=== PATIENT | male | born 1980 | race African-American/Black ===

== ENCOUNTER 2017-09-12 13:07 | Emergency (ER) | payer SELFPAY ==
[~2017-09-12] VITALS: Ht 182.9 cm; Wt 86.8 kg
[~2017-09-12 13:07] MED LIST: LEVE-5 PO; TOPI100T42 PO
[2017-09-12 13:28] VITALS: Ht 182.9 cm; Wt 86.8 kg
[2017-09-12] MEDS ORDERED: LEVE500S8 PO (15:49)
[2017-09-12] MEDS ORDERED: LEVE100018 PO (15:51)
[2017-09-12] MEDS ORDERED: LEVETIRACETAM 500 MG TAB PO ONE (16:00)
--- NOTE | 2017-09-12 16:11 | ERD ---
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 The patient states that thousand milligrams twice daily, last dose was on Tuesday and he developed a seizure today that was witnessed by his mother. Mother states it lasted for less than a minute, and he has not had any neurologic symptoms since. Patient denies any headaches, loss consciousness, vomiting. He was seeing a neurologist but because of insurance changes he was not able to get a refill on time. ROS All systems reviewed and are negative except as per history of present illness. Medications Home Meds Active Scripts Levetiracetam* (Keppra*) 1,000 Mg Tablet, 1000 MG PO BID, #60 TAB Prov:SIMEON BOSCH PA-C 09/12/17 Topiramate* (Topamax*) 100 Mg Tab, 100 MG PO BID, #60 TAB Prov:LOVE JULIEN MD 06/28/14 Levetiracetam* (Keppra*) 500 Mg Tab, 500 MG PO BID, #60 TAB Prov:LOVE JULIEN MD 06/28/14 Allergies Allergies: Coded Allergies: No Known Allergy (Unverified , 06/27/14) PMhx/Soc History of Surgery: No (DENIES) Anesthesia Reaction: No (DENIES) Hx Neurological Disorder: Yes (SEIZURE ACTIVITY) Hx Respiratory Disorders: No (DENIES) Hx Cardiac Disorders: No (DENIES) Hx Psychiatric Problems: No (DENIES) Hx Miscellaneous Medical Probl: No (DENIES) Hx Alcohol Use: Yes (CURRENT USE) Hx Tobacco Use: No (DENIES) Smoking Status: Never smoker Physical Exam Vitals Vital Signs Date Time Temp Pulse Resp B/P Pulse Ox O2 Delivery O2 Flow Rate FiO2 09/12/17 13:28 97.6 60 18 136/78 97 Physical Exam General: Well-developed, well-nourished. The patient appears in no acute distress. HEENT: Head is normocephalic, atraumatic. No scleral icterus. Eyes are Viviana. Neck: Supple. Nontender. Lungs: Clear to auscultation. Normal air movement. Heart: Regular rate and rhythm. S1 and S2 are normal. No murmurs, gallops, or rubs. Abdomen: Soft, nontender, nondistended. Bowel sounds are normoactive. Extremities: No clubbing or cyanosis. Normal pulses. Moving extremities x 4. No weakness. Neurologic: Alert and oriented 3. No focal deficits. Skin: Normal turgor. No rash or lesions. Results 24 hrs Current Medications Medications (Trade) Dose Ordered Sig/Drake Route PRN Reason Start Time Stop Time Status Last Admin Dose Admin Levetiracetam (Keppra) 1,000 mg ONCE ONCE PO 09/12/17 16:00 09/12/17 16:01 DC 09/12/17 16:05 Procedures/MDM 37-year-old male will be given a medication refill for Keppra thousand milligrams twice daily due to his his sister's seizures, the patient had a witnessed seizure today by his family member, and they state that this is his normal seizure,. He does not have any signs of make me think the patient is postictal, shows altered mental status and denies any headaches. The patient is aware that he needs to see a neurosurgeon as well as a neurologist for continuing evaluation but he needs to get the referral from his doctor at this time. He was given a dose of Keppra in the emergency department and will be given a refill for 1 month. Case was discussed my attending physician Dr. Hooper who agrees with the plan of care. Supervision Departure Diagnosis: Primary Impression: Encounter for medication refill Additional Impression: Seizure Condition: Good Patient Instructions: Seizure, Recurrent [Adult] Referrals: MIGUEL LOCKWOOD MD Additional Instructions: Neurologist SPECIALIST: YOU HAVE A MEDICAL CONDITION WHICH REQUIRES YOU TO SEE A SPECIALIST WITHIN THE NEXT 1-2 DAYS. PLEASE FOLLOW UP WITH YOUR PRIMARY PHYSICIAN FOR REFFERAL.IF YOU DO NOT HAVE A PRIMARY CARE PHYSICIAN AND/OR YOU CAN NOT AFFORD TO SEE A PHYSICIAN THE FOLLOWING RESOURCES HAVE BEEN SUPPLIED TO YOU. IT IS YOUR RESPONSIBILITY TO BE SEEN BY THE SPECIALIST SIMEON BOSCH PA-C Sep 12, 2017 16:11
== END 2017-09-12 16:44 | disposition home or self-care (01) ==
LOC: FTE 13:07
DX: R56.9 Unspecified convulsions (principal); Z76.0 Encounter for issue of repeat prescription
CPT/HCPCS: 99283

== ENCOUNTER 2018-07-19 03:13 | Emergency (ER) | END 2018-07-19 07:33 | disposition home or self-care (01) ==